=== PATIENT | male | born 1995 | race Caucasian/White ===

== ENCOUNTER 2016-07-13 18:36 | Emergency (ER) | payer OTHER ==
[2016-07-13] MEDS ORDERED: KETOROLAC 60 MG/2 ML VIAL IM ONE (19:15)
[2016-07-13] MEDS ORDERED: DILAUDID 1 MG/ML AMP ONE (19:15)
== END 2016-07-13 20:55 | disposition home or self-care (01) ==
LOC: ER 18:36
CPT/HCPCS: 72072 ×2; 72100 ×2; 96372 ×2; 99284; J1170